=== PATIENT | female | born 1950 | race Caucasian/White ===

== ENCOUNTER → 2020-10-11 14:33 | Outpatient (REF) | payer OTHER, SELFPAY | LOC: ANHLAB 14:33 | PROVIDERS: PCP Internal Medicine; Visit Provider Surgery Plastic and Reconstructive Surgery | DX: D03.39 Melanoma in situ of other parts of face (principal) | CPT/HCPCS: 88305; 88342 ==

== ENCOUNTER → 2022-01-23 16:15 | Outpatient (REF) | payer OTHER, SELFPAY | LOC: ANHLAB 16:15 | PROVIDERS: PCP Internal Medicine; Visit Provider Surgery Plastic and Reconstructive Surgery | DX: D03.39 Melanoma in situ of other parts of face (principal) | CPT/HCPCS: 88305; 88342 ==

== ENCOUNTER 2023-01-27 14:29 | Outpatient (NON) | payer OTHER, SELFPAY | END 2023-01-27 14:30 | disposition home or self-care (01) | LOC: ANHLAB 14:29 | PROVIDERS: PCP Internal Medicine; Visit Provider Nurse Practitioner | DX: C44.320 Squamous cell carcinoma of skin of unspecified parts of face (principal) | CPT/HCPCS: 88305; 88331 ==

== ENCOUNTER 2023-09-01 12:55 | Outpatient (NON) | payer OTHER, SELFPAY | END 2023-09-01 12:56 | disposition home or self-care (01) | LOC: ANHLAB 12:55 | PROVIDERS: PCP Internal Medicine; Visit Provider Surgery Plastic and Reconstructive Surgery | DX: C44.92 Squamous cell carcinoma of skin, unspecified (principal) | CPT/HCPCS: 88305; 88331 ==